=== PATIENT | male | born 1990 | race Caucasian/White ===

== ENCOUNTER 2018-02-20 22:05 | Emergency (ER) | payer OTHER ==
[~2018-02-20] VITALS: Ht 162.6 cm; Wt 63.5 kg
[2018-02-20 22:09] VITALS: BP 123/75
--- NOTE | 2018-02-20 22:12 | NUR ---
TO LOBBY A/W BED, AMBULATORY, VSS, OLIVERIO NOTED
--- NOTE | 2018-02-20 22:16 | NUR ---
PT TAKEN TO BED 7
--- NOTE | 2018-02-20 22:17 | NUR ---
PATIENT PRESENTS TO ED WITH ANXIETY X1 YEAR. PATIENT STATES HE HAS SEVERE SOCIAL ANXIETY. PATIENT IS VERY GUARDED AT THIS TIME. PATIENT DENIES PAIN AT THIS TIME. PATIENT STATES HE HAS A HISTORY OF SI AND HAS PREVIOUS ATTTEMPTS IN THE PAST BUT DOES NOT HAVE ANY THOUGHTS OF SUICIDE AT THIS TIME. PATIENT IS AWAKE AND ALERTX4. PATIENT HAS AGREED TO BE PLACED ON MONITOR AT THIS TIME. WILL CONTINUE TO MONITOR.
--- NOTE | 2018-02-20 22:30 | NUR ---
Dr. Snell evaluating patient at bedside.
[2018-02-20] MEDS ORDERED: LORazepam 1 MG TAB PO ONE (22:45)
[2018-02-20 22:59] VITALS: BP 108/68
== END 2018-02-20 22:59 | disposition home or self-care (01) ==
LOC: MED 22:05
DX: F41.9 Anxiety disorder, unspecified (principal)
CPT/HCPCS: 81002; 99283; 99284

== ENCOUNTER 2018-10-17 11:08 | Outpatient (CLI) | payer OTHER ==
[2018-10-17 12:47] LABS: BASOPHILS % (AUTO) 0.3 % (0.0-2.0); EOSINOPHILS # (AUTO) 0.1 K/uL (0-0.4); EOSINOPHILS % (AUTO) 1.7 % (0.0-4.0); HEMATOCRIT 43.1 % (36-52); HEMOGLOBIN 14.8 g/dL (12.0-18.0); LYMPHOCYTES # (AUTO) 1.4 K/uL (2.0-11.5); LYMPHOCYTES % (AUTO) 17.6 % (20.5-51.1); MEAN CORPUSCULAR HEMOGLOBIN 30 pg (27-31); MEAN CORPUSCULAR HGB CONC 34 g/dL (33-37); MEAN CORPUSCULAR VOLUME 88.4 fL (80-94); MONOCYTES # (AUTO) 0.6 K/uL (0.8-1.0); MONOCYTES % (AUTO) 7.6 % (1.7-9.3); NEUTROPHILS # (AUTO) 5.7 K/uL (1.8-7.7); NEUTROPHILS % (AUTO) 72.8 % (42.2-75.2); PLATELET COUNT (AUTO) 253 K/uL (140-450); RED BLOOD CELL COUNT(AUTO) 4.87 MIL/uL (4.20-6.10); RED CELL DISTRIBUTION WIDTH 13.1 % (11.6-13.7); WHITE BLOOD COUNT (AUTO) 7.9 K/uL (4.8-10.8)
[2018-10-17 13:15] LABS: ALBUMIN 3.8 g/dL (3.4-5.0); ANION GAP 12.3 (8-16); CARBON DIOXIDE 27.9 mmol/L (21-32); CHOL/HDL RATIO 2.7 (1-4.5); CREATININE 0.8 mg/dL (0.7-1.3); FREE T4 (FREE THYROXINE) 0.77 ng/dL (0.76-1.46); POTASSIUM 4.2 mmol/L (3.5-5.1); THYROID STIMULATING HORMONE 0.61 uIU/mL (0.34-3.74); TOTAL BILIRUBIN 0.2 mg/dL (0.0-1.0)
== END 2018-10-17 19:39 | disposition home or self-care (01) ==
LOC: MLB 11:08
DX: F33.0 Major depressive disorder, recurrent, mild (principal); F20.9 Schizophrenia, unspecified
CPT/HCPCS: 36415; 80053; 84403; 84439; 84443; 85025

== ENCOUNTER 2018-10-20 16:30 | Outpatient (CLI) | payer OTHER ==
[2018-10-20 17:49] LABS: APPEARANCE,URINE CLEAR (CLEAR); BILIRUBIN,URINE NEGATIVE (NEGATIVE); BLOOD, URINE NEGATIVE (NEGATIVE); COLOR,URINE YELLOW (YELLOW); LEUKOCYTE ESTERASE ,URINE NEGATIVE (NEGATIVE); NITRITE, URINE NEGATIVE (NEGATIVE); UGLUCOSE NEGATIVE (NEGATIVE)
[2018-10-20 17:53] LABS: BARBITURATE, URINE NEG. ng/ml (NEG <=200); BENZODIAZEPINE, URINE NEG. ng/mL (NEG <=200); CANNABINOID, URINE NEG. ng/mL (NEG <=50); COCAINE, URINE NEG. ng/mL (NEG <=300); OPIATE, URINE NEG. ng/mL (NEG <=2000); PHENCYCLIDINE SCREEN,URINE NEG. ng/mL (NEG <=25)
== END 2018-10-20 19:56 | disposition home or self-care (01) ==
LOC: MLB 16:30
DX: F20.9 Schizophrenia, unspecified (principal); F33.0 Major depressive disorder, recurrent, mild
CPT/HCPCS: 80305; 81003

== ENCOUNTER 2019-04-24 15:02 | Emergency (ER) | payer OTHER ==
[~2019-04-24] VITALS: Ht 165.1 cm; Wt 69.6 kg
[2019-04-24 15:46] VITALS: BP 109/65
[2019-04-24] MEDS ORDERED: NACL 0.9% 1,000 ML IV ONE (16:50)
[2019-04-24] MEDS ORDERED: METOCLOPRAMIDE 10 MG/2 ML INJ VIAL IVP ONE (16:50)
[2019-04-24] MEDS ORDERED: diphenhydrAMINE 50 MG/ML VIAL IVP ONE (16:50)
[2019-04-24] MEDS ORDERED: KETOROLAC 30 MG/ML VIAL IVP ONE (16:50)
[2019-04-24] MEDS ORDERED: MAGN400S60 PO (18:16)
[2019-04-24] MEDS ORDERED: METO5SOL19 GT (18:16)
[2019-04-24] MEDS ORDERED: SIMV40TA1 GT (18:16)
[2019-04-24] MEDS ORDERED: NA P133E RC (18:16)
[2019-04-24] MEDS ORDERED: TAMS0.4C96 GT (18:16)
[2019-04-24] MEDS ORDERED: OMEP40EC24 GT (18:16)
[2019-04-24] MEDS ORDERED: ROB GT (18:16)
[2019-04-24] MEDS ORDERED: DIPH25SG5 GT (18:16)
[2019-04-24] MEDS ORDERED: BISA-213 RC (18:16)
[2019-04-24] MEDS ORDERED: MULT9LIQ5 GT (18:16)
[2019-04-24] MEDS ORDERED: PRON INH (18:16)
[2019-04-24] MEDS ORDERED: LACT10SO1 GT (18:16)
[2019-04-24] MEDS ORDERED: FLONAS NS (18:16)
[2019-04-24] MEDS ORDERED: ACET-2619 GT (18:16)
[2019-04-24 18:40] VITALS: BP 127/74
== END 2019-04-24 18:40 | disposition home or self-care (01) ==
LOC: MED 15:02
DX: R51 Headache (principal); R11.0 Nausea; H53.149 Visual discomfort, unspecified; Z79.899 Other long term (current) drug therapy
CPT/HCPCS: 96374; 96375; 99283; J1200; J1885; J2765; J7030; 96361

== ENCOUNTER 2019-04-26 19:09 | Emergency (ER) | payer OTHER ==
[~2019-04-26] VITALS: Ht 162.6 cm; Wt 63.5 kg
[~2019-04-26 19:09] MED LIST: ACET-2619 GT; BISA-213 RC; DIPH25SG5 GT; FLONAS NS; LACT10SO1 GT; MAGN400S60 PO; METO5SOL19 GT; MULT9LIQ5 GT; NA P133E RC; OMEP40EC24 GT; PRON INH; ROB GT; SIMV40TA1 GT; TAMS0.4C96 GT
[2019-04-26 19:15] VITALS: BP 109/75
[2019-04-26] MEDS ORDERED: KETOROLAC 30 MG/ML VIAL IVP ONE (20:30)
[2019-04-26] MEDS ORDERED: NACL 0.9% 1,000 ML IV ONE (20:30)
[2019-04-26 21:19] LABS: BASOPHILS % (AUTO) 0.1 % (0.0-2.0); EOSINOPHILS % (AUTO) 0.1 % (0.0-4.0); HEMOGLOBIN 15.9 g/dL (12.0-18.0); LYMPHOCYTES # (AUTO) 0.9 K/uL (2.0-11.5); LYMPHOCYTES % (AUTO) 8.2 % (20.5-51.1); MEAN CORPUSCULAR HEMOGLOBIN 30 pg (27-31); MEAN CORPUSCULAR HGB CONC 35 g/dL (33-37); MEAN CORPUSCULAR VOLUME 87.6 fL (80-94); MONOCYTES # (AUTO) 0.8 K/uL (0.8-1.0); MONOCYTES % (AUTO) 7.4 % (1.7-9.3); NEUTROPHILS # (AUTO) 8.8 K/uL (1.8-7.7); NEUTROPHILS % (AUTO) 84.2 % (42.2-75.2); PLATELET COUNT (AUTO) 272 K/uL (140-450); RED BLOOD CELL COUNT(AUTO) 5.24 MIL/uL (4.20-6.10); RED CELL DISTRIBUTION WIDTH 12.8 % (11.6-13.7); WHITE BLOOD COUNT (AUTO) 10.4 K/uL (4.8-10.8)
[2019-04-26 21:30] LABS: APPEARANCE,URINE CLEAR (CLEAR); BILIRUBIN,URINE NEGATIVE (NEGATIVE); BLOOD, URINE NEGATIVE (NEGATIVE); COLOR,URINE YELLOW (YELLOW); LEUKOCYTE ESTERASE ,URINE NEGATIVE (NEGATIVE); NITRITE, URINE NEGATIVE (NEGATIVE); UGLUCOSE NEGATIVE (NEGATIVE)
[2019-04-26 21:33] LABS: ALBUMIN 4.3 g/dL (3.4-5.0); ANION GAP 14.1 (8-16); CARBON DIOXIDE 28.8 mmol/L (21-32); CREATININE 0.9 mg/dL (0.7-1.3); POTASSIUM 3.9 mmol/L (3.5-5.1); TOTAL BILIRUBIN 0.5 mg/dL (0.0-1.0)
[2019-04-26 21:41] LABS: BARBITURATE, URINE NEG. ng/ml (NEG <=200); BENZODIAZEPINE, URINE NEG. ng/mL (NEG <=200); CANNABINOID, URINE NEG. ng/mL (NEG <=50); COCAINE, URINE NEG. ng/mL (NEG <=300); OPIATE, URINE NEG. ng/mL (NEG <=2000); PHENCYCLIDINE SCREEN,URINE NEG. ng/mL (NEG <=25)
[2019-04-26 21:48] LABS: RBC,URINE NONE SEEN /HPF (0-5)
[2019-04-26 21:49] LABS: WBC,URINE NONE SEEN /HPF (0-5)
[2019-04-26] MEDS ORDERED: AZITHROMYCIN 250 MG TAB PO ONE (22:05)
[2019-04-26] MEDS ORDERED: cefTRIAXone 1,000 MG VIAL ONE (22:18)
[2019-04-26 23:00] VITALS: BP 110/64
== END 2019-04-26 22:11 | disposition home or self-care (01) ==
LOC: MED 19:09
DX: G44.209 Tension-type headache, unspecified, not intractable (principal); Z20.2 Contact with and (suspected) exposure to infections with a predominantly sexual mode of transmission; Z79.899 Other long term (current) drug therapy
CPT/HCPCS: 36415; 70450; 80053; 80305; 81001; 85025; 96365; 96375; 99284; J0696; J1885; J7030

== ENCOUNTER 2020-01-21 11:27 | Inpatient (IN) | payer OTHER ==
[~2020-01-21] VITALS: Ht 162.6 cm; Wt 68.0 kg
--- NOTE | 2020-01-21 11:48 | NUR ---
CALLED FOR TRIAGE NO ANSWER.
[2020-01-21 11:54] VITALS: BP 111/62
--- NOTE | 2020-01-21 11:59 | NUR ---
Pt taken to chair A.
[2020-01-21] MEDS ORDERED: ACETAMINOPHEN EXTRA STRENGTH 500 MG TAB PO ONE (12:10)
--- NOTE | 2020-01-21 12:24 | NUR ---
PT KRISTY TO ER BED 05
--- NOTE | 2020-01-21 12:25 | NUR ---
Upon discharge by Yosef BAIG, pt reported SI, pt reports he has had ideations x 1 week that started when his headache began. pt has had prior thoughts of SI, and had a plan of not eating. pt denies any plan at this time, denies any auditory or visual hallucinations that encourage him to hurt himself or others. Dr. Snell made aware of pts thoughts.
--- NOTE | 2020-01-21 12:44 | NUR ---
pt unable to void at this time, urinal at bedside.
--- NOTE | 2020-01-21 12:44 | NUR ---
lab at bedside.
[2020-01-21 12:54] LABS: BASOPHILS # (AUTO) 0.1 K/uL (0.00-0.22); BASOPHILS % (AUTO) 0.9 % (0.0-2.0); EOSINOPHILS # (AUTO) 0.1 K/uL (0-0.4); EOSINOPHILS % (AUTO) 1.8 % (0.0-4.0); HEMATOCRIT 45.4 % (36-52); HEMOGLOBIN 15.7 g/dL (12.0-18.0); LYMPHOCYTES # (AUTO) 1.9 K/uL (2.0-11.5); LYMPHOCYTES % (AUTO) 27.1 % (20.5-51.1); MEAN CORPUSCULAR HEMOGLOBIN 30 pg (27-31); MEAN CORPUSCULAR HGB CONC 35 g/dL (33-37); MEAN CORPUSCULAR VOLUME 87.2 fL (80-94); MONOCYTES # (AUTO) 0.6 K/uL (0.8-1.0); MONOCYTES % (AUTO) 7.9 % (1.7-9.3); NEUTROPHILS # (AUTO) 4.5 K/uL (1.8-7.7); NEUTROPHILS % (AUTO) 62.3 % (42.2-75.2); PLATELET COUNT (AUTO) 269 K/uL (140-450); RED BLOOD CELL COUNT(AUTO) 5.21 MIL/uL (4.20-6.10); RED CELL DISTRIBUTION WIDTH 12.9 % (11.6-13.7); WHITE BLOOD COUNT (AUTO) 7.2 K/uL (4.8-10.8)
--- NOTE | 2020-01-21 12:58 | NUR ---
urine collected and lab called for hot die picker
[2020-01-21 13:10] LABS: ACETAMINOPHEN 8.7 ug/ml (10-30); ALBUMIN 4.1 g/dL (3.4-5.0); ANION GAP 11.2 (8-16); ASPARTATE AMINOTRANSFERASE 18 U/L (15-37); CARBON DIOXIDE 30.7 mmol/L (21-32); CHLORIDE 102 mmol/L (98-107); GFR ARICAN-AMERICAN 112 mL/min (>90); GLUCOSE 98 mg/dL (74-106); POTASSIUM 3.9 mmol/L (3.5-5.1); SODIUM SERUM 140 mmol/L (136-145); TOTAL BILIRUBIN 0.6 mg/dL (0.0-1.0); UREA NITROGEN, BLOOD 14 mg/dL (7-18)
[2020-01-21 13:14] LABS: SALICYLATE < 2.8 mg/dL (2.8-20.0)
--- NOTE | 2020-01-21 13:40 | NUR ---
pt on telepsych consult.
--- NOTE | 2020-01-21 13:43 | NUR ---
regular lunch tray ordered for pt.
[2020-01-21 14:03] LABS: BARBITURATE, URINE NEGATIVE ng/ml (NEG <=200); BENZODIAZEPINE, URINE NEGATIVE ng/mL (NEG <=200); CANNABINOID, URINE NEGATIVE ng/mL (NEG <=50); COCAINE, URINE NEGATIVE ng/mL (NEG <=300); OPIATE, URINE NEGATIVE ng/mL (NEG <=2000); PHENCYCLIDINE SCREEN,URINE NEGATIVE ng/mL (NEG <=25)
--- NOTE | 2020-01-21 14:20 | NUR ---
PT SITTING UPRIGHT IN BED EATING LUNCH.
--- NOTE | 2020-01-21 14:22 | NUR ---
SPOKE WITH DR. CONDON. HE STATES PATIENT IS SUICIDAL AND HALLUCINATING AT THIS TIME AND HIS RECOMMENDATION IS TO PLACE PATIENT ON 5150 AFTER HE IS MEDICALLY CLEAR.
--- NOTE | 2020-01-21 14:23 | NUR ---
DR. ROBINS MADE AWARE.
--- NOTE | 2020-01-21 15:25 | NUR ---
VSS, PT RESTING IN BED, RR EVEN AND UNLABORED. PT REPORTS 10/[address] ROBINS MADE AWARE AND WILL PLACE IN ORDER FOR PAIN MEDICATION.
[2020-01-21] MEDS ORDERED: LORazepam 1 MG TAB PO ONE (15:30)
--- NOTE | 2020-01-21 16:40 | NUR ---
pt ambulated to bathroom, steady gait.
--- NOTE | 2020-01-21 18:09 | NUR ---
PT RESTING IN BED ASLEEP, RR EVEN AND UNLABORED.
--- NOTE | 2020-01-21 18:11 | NUR ---
REGULAR DIET ORDERED FOR DINNER.
--- NOTE | 2020-01-21 19:20 | NUR ---
RECIEVED REPORT FROM SAFIA MICHELE. WILL CONT CARE AT THIS TIME.
--- NOTE | 2020-01-21 19:20 | NUR ---
Pt report given to bj venegas. Transfer of care at this time.
--- NOTE | 2020-01-21 22:07 | NUR ---
Called the following facilities: [facility] s/w Julio C[facility]ar, at capacity [facility]/w [facility], no beds in acute unit only high acute. Asked to fax packet in case they move beds [facility] s/w Carley no beds [facility] s/w Airam, packet fax for review
--- NOTE | 2020-01-21 22:46 | NUR ---
Received call from Argenis Fernandez, not able to accommodate patient
[2020-01-21] MEDS ORDERED: ACETAMINOPHEN 325 MG TAB PO PRN (23:10)
[2020-01-21] MEDS ORDERED: ONDANSETRON 4 MG/2 ML VIAL IM/IVP PRN (23:10)
--- NOTE | 2020-01-21 23:39 | NUR ---
PT IS AWAKE AND EATING HIS DINNER MEAL AT THIS TIME. NO DISTRESS NOTED.
[2020-01-21 23:43] LABS: CHOL/HDL RATIO 3.2 (1-4.5)
[2020-01-22 00:04] LABS: MAGNESIUM 1.8 mg/dL (1.8-2.4); PHOSPHORUS 3.9 mg/dL (2.5-4.9); THYROID STIMULATING HORMONE 0.82 uIU/mL (0.34-3.74)
--- NOTE | 2020-01-22 00:59 | NUR ---
COLLECTED MRSA SWAB AND SENT TO LAB.
--- NOTE | 2020-01-22 01:00 | NUR ---
PT SLEEPING COMFORTABLY. NO DISTRESS NOTED.
[2020-01-22] MEDS ORDERED: HYDROcodone/APAP 5/325 MG 1 TAB TAB PO PRN (01:20)
--- NOTE | 2020-01-22 03:05 | NUR ---
PT SLEEPING COMFORTABLY. NO DISTRESS NOTED. EQUAL CHEST RISE AND FALL.
--- NOTE | 2020-01-22 04:24 | NUR ---
PT SLEEPING COMFORTABLY. NO DISTRESS NOTED. EQUAL CHEST RISE AND FALL.
--- NOTE | 2020-01-22 04:43 | NUR ---
Still no beds at any of the designated facilities. Will endorse to incoming shift to seek further placement during their shift.
--- NOTE | 2020-01-22 06:00 | NUR ---
PT SLEEPING COMFORTABLY. NO DISTRESS NOTED. EQUAL CHEST RISE AND FALL.
[2020-01-22 07:05] VITALS: BP 109/63
--- NOTE | 2020-01-22 07:05 | NUR ---
Patient will be admitted to care of DR. CORNELL. Admited to M/S. Will go to room 109B. Belongings list completed. Report to AZUL.
--- NOTE | 2020-01-22 07:05 | NUR ---
RECEIVED PATIENT FROM ED NURSE FOR ADMISSION AND CONTINUITY OF CARE VIA [facility]. PATIENT IS AAOX4. 5150 HOLD. 1:[address] HOLD PAPERWORK PRESENT STATED 01/21/2020 AT 1500. DENIES HALLUCINATIONS. HE IS QUIET. STARING BLANKLY AT THE WALL. RESPIRATIONS EVEN AND UNLABORED, ROOM AIR. VISIBLE CHEST RISE AND FALL NOTED. ON MED-SURG. ABDOMEN SOFT AND NONTENDER. REGULAR DIET. SKIN WARM, DRY, AND INTACT. NO IV PRESENT. UNIVERSAL FALL PRECAUTION. BED IN LOW POSITION. CALL LIGHT IS WITHIN REACH. WILL CONTINUE TO MONITOR
--- NOTE | 2020-01-22 09:23 | NUR ---
PATIENT HAS BEEN SCREENED AND CATEGORIZED LOW NUTRITION RISK. PATIENT WILL BE SEEN WITHIN 7 DAYS OF ADMISSION. 01/28/[address]
--- NOTE | 2020-01-22 09:56 | NUR ---
Patient's Orientation Person Situation Place Time Information Provided By PATIENT Comments SW MET WITH PATIENT AT BEDSIDE. Renal Medicine Specialist, Realtionship and Phone Number ISMA DOAN FRIEND [phone] [facility] Power of Rn Surgery No Does Patient Have a POLST No Identifying Problems No Social Work Triggers Is A Social Work Consult Needed No Mandate Report Filed No Explanation Of Identifying Problems PATIENT IS A 29-YEAR-OLD MALE ADMITTED FOR SUICIDAL IDEATION. PATIENT HAS PMHX OF SCHIZOPHRENIA, HEADACHES, AND DYSLIPEDEMIA. Admitted From Home Pre-Admission Level Of Functioning Status Independent/Ambulatory Prior Resources/Services Used In Last 12 Months No Prior Resources Used Prior DME No Prior DME Used Living Situation 1 Story Lives With Friend/Other Patient Had Caregiver No Home Support No Caregiver Issues Financial Issues No Known Financial Issue Factors/Needs Psych Placement/Referral Community Resources Explanation And Or Other Factors Affecting/Possible DC Needs MIGUE PROVIDED MENTAL HEALTH RESOURCES TO PATIENT. MIGUE FAXED CLINICALS TO [facility] [phone]. Pt/Rep Participated In Discharge Plan Yes Discharge Plan Comments TENTATIVE DISCHARGE PLAN IS FOR PATIENT TO BE DISCHARGED TO PSYCHIATRIC FACILITY PENDING PSYCHIATRIC CONSULT. DC Plan Status Initiated Addendum: 01/22/20 at 0957 by Lewis PIERSON PATIENT REPORTED NO SI/HI, BUT DID REPORT AH/VH. Addendum: 01/22/20 at 1052 by Lewis Scanlon SS SW CONFIRMED WITH [facility] THAT CLINICAL PACKET WAS RECEIVED. PER BERYL, [facility] IS WORKING ON PLACEMENT.
--- NOTE | 2020-01-22 10:34 | NUR ---
PATIENT IS AT THE BATHROOM AT THIS TIME. 1:[address]
[2020-01-22] MEDS ORDERED: OLANZapine 5 MG TAB PO SCH (12:15)
--- NOTE | 2020-01-22 12:16 | NUR ---
GIVEN ZYPREXA PO. EXPLAINED MEDICATION. PATIENT STATED HE FEELS ANXIOUS BECAUSE IT'S LOUD OUTSIDE AND HE IS IN UNFAMILIAR PLACE. OFFERED HIM EAR PLUGS WITHOUT THE CORDS.
--- NOTE | 2020-01-22 13:42 | NUR ---
URINE SAMPLE NEEDED. PATIENT AWARE.
[2020-01-22 16:00] VITALS: BP 103/49
--- NOTE | 2020-01-22 16:13 | NUR ---
PATIENT IS SLEEPING COMFORTABLY. NO SIGNS OF DISTRESS NOTED. 1:[address]
--- NOTE | 2020-01-22 18:05 | NUR ---
PATIENT IS CURRENTLY EATING DINNER AT THIS TIME. 1:[address]
--- NOTE | 2020-01-22 18:15 | NUR ---
GIVEN UPDATE TO THE BROTHER, JOB, .
--- NOTE | 2020-01-22 19:12 | NUR ---
ENDORSED PATIENT TO THE GUEST SERVICES NURSE FOR CONTINUITY OF CARE. PATIENT IS IN STABLE CONDITION
--- NOTE | 2020-01-22 20:00 | NUR ---
RECEIVED REPORT FROM AM RN.PT IS AWAKE,ALERT AND ORIENTED.RESP.UNLABORED IN RA. DENIED ANY PAIN OR DISCOMFORT.HAS NO IV LINE.SITTER AT BEDSIDE.
[2020-01-22] MEDS ORDERED: SIMVASTATIN 40 MG TAB PO SCH (21:00)
[2020-01-22 22:44] LABS: APPEARANCE,URINE CLEAR (CLEAR); BILIRUBIN,URINE NEGATIVE (NEGATIVE); BLOOD, URINE NEGATIVE (NEGATIVE); COLOR,URINE YELLOW (YELLOW); LEUKOCYTE ESTERASE ,URINE NEGATIVE (NEGATIVE); NITRITE, URINE NEGATIVE (NEGATIVE); UGLUCOSE NEGATIVE (NEGATIVE)
[2020-01-23] VITALS: BP 104/60
--- NOTE | 2020-01-23 01:13 | NUR ---
Still no beds at any of the designated facilities; Irene Bernard [facility] [place] Call in the AM for any discharges
--- NOTE | 2020-01-23 07:15 | NUR ---
RECEIVED REPORT FROM NIGHT NURSE FOR CONTINUITY OF CARE, PT IS AAOX4, PT IS ASLEEP, NO SIGNS OF DISTRESS NOTED, RESPIRATIONS ARE EVEN AND UNLABORED ON ROOM AIR, WILL INTRODUCE SELF, ALL NEEDS MET AT THIS TIME, PT HAS NO IV SITE, 5150 WAS D/C TODAY, WILL CONTINUE TO MONITOR
--- NOTE | 2020-01-23 07:19 | NUR ---
CAME AND D/YAMILA 5157.AND SAID PT CAN DISCHARGE AND F/U W/ MENTAL CLINIC OUT PT. REPORT GIVEN TO RAUL BAIG.PT'S CONDITION IS STABLE.
[2020-01-23 08:00] VITALS: BP 99/51
[2020-01-23] MEDS ORDERED: OLAN5TAB30 PO (08:08)
[2020-01-23] MEDS ORDERED: OLANZapine 5 MG TAB PO SCH (09:00)
--- NOTE | 2020-01-23 09:05 | NUR ---
ADMINISTERED SCHEDULED MEDICATION, MEDICATION EDUCATION GIVEN, PT VERBALIZED UNDERSTANDING, PT TOLERATED WELL, PT IS STABLE, NO SIGNS OF DISTRESS NOTED, WILL CONTINUE TO MONITOR.
[2020-01-23 10:42] LABS: BASOPHILS % (AUTO) 0.4 % (0.0-2.0); EOSINOPHILS # (AUTO) 0.2 K/uL (0-0.4); EOSINOPHILS % (AUTO) 2.3 % (0.0-4.0); HEMATOCRIT 46.1 % (36-52); HEMOGLOBIN 15.8 g/dL (12.0-18.0); LYMPHOCYTES # (AUTO) 1.3 K/uL (2.0-11.5); LYMPHOCYTES % (AUTO) 18.5 % (20.5-51.1); MEAN CORPUSCULAR HEMOGLOBIN 30 pg (27-31); MEAN CORPUSCULAR HGB CONC 34 g/dL (33-37); MEAN CORPUSCULAR VOLUME 87.2 fL (80-94); MONOCYTES # (AUTO) 0.6 K/uL (0.8-1.0); MONOCYTES % (AUTO) 8.5 % (1.7-9.3); NEUTROPHILS # (AUTO) 4.8 K/uL (1.8-7.7); NEUTROPHILS % (AUTO) 70.3 % (42.2-75.2); PLATELET COUNT (AUTO) 285 K/uL (140-450); RED BLOOD CELL COUNT(AUTO) 5.29 MIL/uL (4.20-6.10); WHITE BLOOD COUNT (AUTO) 6.9 K/uL (4.8-10.8)
[2020-01-23 10:53] LABS: ANION GAP 12.5 (8-16); CREATININE 0.9 mg/dL (0.6-1.3); POTASSIUM 3.5 mmol/L (3.5-5.1)
--- NOTE | 2020-01-23 11:10 | NUR ---
PT STABLE, PT DISCHARGED HOME, DISCHARGED INSTRUCTIONS GIVEN, PT VERBALIZED UNDERSTANDING, PT WALKED TO LOBBY WITH STEADY GAIT, PT STABLE, PT REFUSED FLU AND PNA
== END 2020-01-23 11:12 | disposition home or self-care (01) | DRG 71 ==
LOC: MED 11:27 → MMU 23:09 → MTU 23:10
PROVIDERS: ADMIT General Practice; ATTEND General Practice
DX: G93.40 Encephalopathy, unspecified (principal); R45.851 Suicidal ideations; F20.9 Schizophrenia, unspecified; Z79.899 Other long term (current) drug therapy; E86.0 Dehydration; R51 Headache; E78.5 Hyperlipidemia, unspecified; Z91.14 Patient's other noncompliance with medication regimen; J32.2 Chronic ethmoidal sinusitis
CPT/HCPCS: 36415; 70450; 80048; 80053; 80305; 81003; 82140; 83735; 84100; 84443; 85025; 87081; 99285; G0480; G0482

== ENCOUNTER 2020-07-26 16:56 | Emergency (ER) | payer OTHER ==
[~2020-07-26] VITALS: Ht 162.6 cm; Wt 63.5 kg
[~2020-07-26 16:56] MED LIST changes: -ACET-2619 GT; -BISA-213 RC; -DIPH25SG5 GT; -FLONAS NS; -LACT10SO1 GT; -MAGN400S60 PO; -METO5SOL19 GT; -MULT9LIQ5 GT; -NA P133E RC; +OLAN5TAB30 PO; -OMEP40EC24 GT; -PRON INH; -ROB GT; -SIMV40TA1 GT; -TAMS0.4C96 GT
[2020-07-26 17:01] VITALS: BP 112/81
--- NOTE | 2020-07-26 17:18 | NUR ---
C/O LAC WOUND AT SCALP & SWELLING S/P CABINET FELL OFF HITTING HIS HEAD X TODAY. DENIES LOC OR N/V. HEADACHE 05/07 AT THIS TIME. PMH: DENIES
[2020-07-26 17:55] VITALS: BP 112/81
== END 2020-07-26 17:55 | disposition home or self-care (01) ==
LOC: MED 16:56
DX: S00.01XA Abrasion of scalp, initial encounter (principal); F20.9 Schizophrenia, unspecified; Z79.899 Other long term (current) drug therapy; W20.8XXA Other cause of strike by thrown, projected or falling object, initial encounter; Y93.89 Activity, other specified; Y92.89 Other specified places as the place of occurrence of the external cause; Y99.8 Other external cause status
CPT/HCPCS: 90471; 90715; 99283

== ENCOUNTER 2020-12-21 16:27 | Emergency (ER) | payer OTHER ==
[~2020-12-21] VITALS: Ht 162.6 cm; Wt 69.9 kg
[2020-12-21 16:37] VITALS: BP 116/70
[2020-12-21] MEDS ORDERED: ONDANSETRON 4 MG ODT PO ONE (17:00)
[2020-12-21] MEDS ORDERED: KETOROLAC 60 MG/2 ML VIAL IM ONE (17:00)
[2020-12-21] MEDS ORDERED: ACET-8386 PO (17:05)
[2020-12-21] MEDS ORDERED: ONDA8TAB87 PO (17:05)
[2020-12-21] MEDS ORDERED: IBUP-2213 PO (17:05)
[2020-12-21 18:15] VITALS: BP 116/70
== END 2020-12-21 18:16 | disposition home or self-care (01) ==
LOC: MED 16:27
DX: R51.9 Headache, unspecified (principal); R11.2 Nausea with vomiting, unspecified; M54.2 Cervicalgia; Z79.899 Other long term (current) drug therapy
CPT/HCPCS: 70450; 96372; 99284; J1885; Q0162

== ENCOUNTER 2020-12-27 12:55 | Emergency (ER) | payer OTHER ==
[~2020-12-27] VITALS: Ht 162.6 cm; Wt 63.5 kg
[~2020-12-27 12:55] MED LIST changes: +ACET-8386 PO; +IBUP-2213 PO; +ONDA8TAB87 PO
[2020-12-27 13:00] VITALS: BP 141/51
--- NOTE | 2020-12-27 13:20 | NUR ---
30 YEAR OLD MALE COMPLAINS OF HEADACHE X 9 DAYS. PT STATES AFTER HEADACHE STARTED THEN HE STARTED HAVING NAUSEA, VOMITTING, BLURRY VISION, AND VISUAL/AUDITORY HALLUCINATIONS. PT DENIES SI/HI. PT AOX4, BREATHING EVEN AND UNLABORED, SKIN WARM AND DRY. BED IN LOWEST POSITION, LOCKED, BED RAIL UPX1. PMH - DENIES ALLERGIES - NKA
[2020-12-27] MEDS ORDERED: LORazepam 1 MG TAB PO ONE (14:10)
[2020-12-27] MEDS ORDERED: KETOROLAC 30 MG/ML VIAL IM ONE (14:10)
--- NOTE | 2020-12-27 15:00 | NUR ---
PT ALERT AND AWAKE, BREATHING EVEN AND UNLABORED. NO DISTRESS NOTED, STATES HE STILL HAS HEADACHE. ERMD MADE AWARE
[2020-12-27] MEDS ORDERED: NAPR-54 PO (15:04)
--- NOTE | 2020-12-27 15:07 | NUR ---
Dr. Snell is reevaluating patient at bedside.
[2020-12-27 15:18] VITALS: BP 141/51
== END 2020-12-27 15:18 | disposition home or self-care (01) ==
LOC: MED 12:55
DX: R51.9 Headache, unspecified (principal); R11.0 Nausea; H53.8 Other visual disturbances; Z79.899 Other long term (current) drug therapy
CPT/HCPCS: 70450; 96372; 99284; J1885

== ENCOUNTER 2021-03-08 13:44 | Emergency (ER) | payer OTHER, SELFPAY ==
[~2021-03-08] VITALS: Ht 152.4 cm; Wt 63.5 kg
[~2021-03-08 13:44] MED LIST changes: +NAPR-54 PO
[2021-03-08 14:01] VITALS: BP 122/66
--- NOTE | 2021-03-08 14:08 | NUR ---
TENT4
[2021-03-08] MEDS ORDERED: HYDR-1093 PO (14:50)
[2021-03-08] MEDS ORDERED: ACET-9496 PO (14:50)
--- NOTE | 2021-03-08 15:00 | NUR ---
Patient discharged with v/s stable. Written and verbal after care instructions given and explained. Patient alert, oriented and verbalized understanding of instructions. Ambulatory with steady gait. All questions addressed prior to discharge. ID band removed. Patient advised to follow up with PMD. Rx of Excedrin and Hydroxyzine given. Patient educated on indication of medication including possible reaction and side effects. Opportunity to ask questions provided and answered.
== END 2021-03-08 15:00 | disposition home or self-care (01) ==
LOC: MED 13:44
DX: G43.909 Migraine, unspecified, not intractable, without status migrainosus (principal); F41.9 Anxiety disorder, unspecified
CPT/HCPCS: 99283